=== PATIENT | female | born 1960 | race Two or more races ===

== ENCOUNTER 2020-05-23 14:32 | Emergency (ER) | payer OTHER ==
--- NOTE | 2020-05-23 14:45 | PDOC ---
Rapid Medical Evaluation Time Seen by Provider: 05/23/20 14:42 Medical Evaluation: 05/23/20 14:42 I have performed a brief in-person evaluation of this patient. CC: right rib pain s/p trip and fall PE: right 9th and 10th rib rib tenderness anteriorly. No SQ emphysema present. Lungs CTAB. Orders: rib series Patient will proceed to ED for further evaluation. 05/23/20 14:44 Discharge Disposition - Diagnosis Rib pain on right side - Referrals - Patient Instructions - Post Discharge Activity
[2020-05-23 14:46] VITALS: BP 141/83; PULSE 68; TEMP 97.3; BMI 29.8
[2020-05-23] MEDS ORDERED: ACETAMINOPHEN 500 MG TABLET (FP) PO ONE (14:46)
[2020-05-23] MEDS ORDERED: ACETAMINOPHEN 500 MG TABLET (FP) ONE (15:21)
--- NOTE | 2020-05-23 16:05 | PDOC ---
History of Present Illness - General Chief Complaint: Injury Stated Complaint: FALL Time Seen by Provider: 05/23/20 14:42 History Source: Patient Exam Limitations: No Limitations - History of Present Illness Initial Comments: 05/23/20 16:00 60-year-old female history of hypertension, diabetes presents complaining of right anterior chest wall pain status post mechanical trip and fall yesterday. Patient states she was walking outside, tripped over uneven pavement landing on her chest knees and bilateral arms. Denies head strike, LOC, neck pain, nausea, vomiting, headache, back pain, shortness of breath, abdominal pain or any other complaints. Patient received acetaminophen in triage. ROS: as above PE: GENERAL: well-appearing, NAD HEAD: NCAT EYES: Pupils equal, round and reactive to light, sclera anicteric, conjunctiva clear ENT: pharynx: no erythema, no exudate, uvula midline NECK: supple CHEST: Right anterior chest wall tenderness on palpation, no swelling, ecch ymoses or crepitus noted RESP: clear, no w/r/r CARDIO: rrr, no m/g/r ABD: +BS, soft, nontender, non distended BACK: no midline spinal ttp, no CVAT EXTREMITIES: Normal range of motion, no edema NEUROLOGICAL: Normal speech, normal gait SKIN: No abrasions or lacerations noted, warm, Dry Is this a multiple visit Asthma Patient?: No Past History - Medical History Allergies/Adverse Reactions: Allergies Allergy/AdvReac Type Severity Reaction Status Date / Time No Known Allergies Allergy Unverified 05/23/20 14:46 Home Medications: Ambulatory Orders Acetaminophen 500 mg PO QID PRN 5 Days #20 tablet 05/23/20 COPD: No HTN: Yes Hypercholesterolemia: Yes - Reproductive History Is Patient Now?: No - Psycho-Social/Smoking History Smoking History: Never smoked Have you smoked in the past 12 months: No Information on smoking cessation initiated: No - Substance Abuse Hx (Audit-C & DAST Scrn) How often the patient has a drink containing alcohol: Never Score: In Men: 4 or > Positive; In Women: 3 or > Positive: 0 Screen Result (Pos requires Nsg. Audit-10AR): Negative In the last yr the pt used illegal drug/Rx for NonMed reason: No Score: Yes response is considered Positive: 0 Screen Result (Positive result requires Nsg. DAST-10): Negative *Physical Exam - Vital Signs Last Vital Signs Temp Pulse Resp BP Pulse Ox 97.3 F L 68 16 141/83 100 05/23/20 14:43 05/23/20 14:43 05/23/20 14:43 05/23/20 14:43 05/23/20 14:43 ED Treatment Course - Medications Given in the ED: ED Medications Discontinued Medications Generic Name Dose Route Start Last Admin Trade Name Su PRN Reason Stop Dose Admin Acetaminophen 975 mg 05/23/20 14:46 05/23/20 15:22 Tylenol - PO 05/23/20 14:47 975 mg ONCE ONE Administration Medical Decision Making - Medical Decision Making 05/23/20 16:02 60-year-old female history of hypertension, diabetes presents complaining of right anterior chest wall pain status post mechanical trip and fall yesterday. Patient states she was walking outside, tripped over uneven pavement landing on her chest knees and bilateral arms. Denies head strike, LOC, neck pain, nausea, vomiting, headache, back pain, shortness of breath, abdominal pain or any other complaints. Patient received acetaminophen in triage. CXR: No acute findings on official read Return precautions discussed Discharge - Discharge Information Problems reviewed: Yes Clinical Impression/Diagnosis: Rib pain on right side Condition: Stable Disposition: HOME - Admission No - Follow up/Referral Referrals: ON STAFF,NOT [Primary Care Provider] - - Patient Discharge Instructions Additional Instructions: Alternate between acetaminophen and ibuprofen every 6 hours as needed for pain Follow-up with your doctor within a week Return to ED if shortness of breath, chest pain or any concerning symptom - Post Discharge Activity Work/Back to School Note: Back to Work
--- OUTSIDE RECORDS SUMMARY | 2020-05-23 19:39 | XMS ---
:1960 Author Organization [facility] Support Name Relationship Address Phone [facility] Unavailable [address] [place] [address] CARLOS ENRIQUE GRAVES DAUGHTER [address] [place] [address] CARLOS ENRIQUE GRAVES Child [address] [place] [address] Re-disclosure Warning The records that you are about to access may contain information from federally- assisted alcohol or drug abuse programs. If such information is present, then the following federally mandated warning applies: This information has been disclosed to you from records protected by federal confidentiality rules (42 CFR part 2). The federal rules prohibit you from making any further disclosure of this information unless further disclosure is expressly permitted by the written consent of the person to whom it pertains or as otherwise permitted by 42 CFR part 2. A general authorization for the release of medical or other information is NOT sufficient for this purpose. The Federal rules restrict any use of the information to criminally investigate or prosecute any alcohol or drug abuse patient.The records that you are about to access may contain highly sensitive health information, the redisclosure of which is protected by Article 27-F of the [facility] Public Health law. If you continue you may haveaccess to information: Regarding HIV / AIDS; Provided by facilities licensed or operated by the [facility] Office of Mental Health; or Provided by the [facility] Office for People With Developmental Disabilities. If such information is present, then the following [facility] mandated warning applies: This information has been disclosed to you from confidential records which are protected by state law. State law prohibits you from making any further disclosure of this information without the specific written consent of the person to whom it pertains, or as otherwise permitted by law. Any unauthorized further disclosure in violation of state law may result in a fine or residential sentence or both. A general authorization for the release of medical or other information is NOT sufficient authorization for further disclosure. Insurance Providers Payer name Policy type Policy ID Covered Covered alliance party's Policy P naida / Coverage alliance party ID relationship to [employer] type [employer] [id number] SP [id number] FIRST Results ID Date Data Source [id number] 11/25/2019 06:45:00 PM EDT [facility] Name Value Range Interpretation Code Description Data Lizz rce(s) Supporting Document(s ) OVER [facility] This lab was ordered by [facility] and reported by [facility]. Procedure
== END 2020-05-23 16:34 | disposition home or self-care (01) ==
LOC: JERFT 14:32
DX: R07.82 Intercostal pain (principal)
CPT/HCPCS: 71046-TC-FY; 71101-TC-RT-FY; 99284-25

== ENCOUNTER 2021-08-11 11:19 | Emergency (ER) | payer OTHER ==
[2021-08-11 11:38] VITALS: BMI 23.1
[2021-08-11 11:41] VITALS: BP 147/82; PULSE 67; TEMP 98.3
[2021-08-11] MEDS ORDERED: KETOROLAC TROMETHAMINE 30 MG/1 ML VIAL IM ONE (13:11)
[2021-08-11] MEDS ORDERED: METHOCARBAMOL 500 MG TABLET PO ONE (13:11)
[2021-08-11] MEDS ORDERED: LIDOCAINE 5% TOPICAL PATCH TP ONE (13:12)
[2021-08-11] MEDS ORDERED: KETOROLAC TROMETHAMINE 30 MG/1 ML VIAL ONE (13:17)
[2021-08-11] MEDS ORDERED: LIDOCAINE 5% TOPICAL PATCH ONE (13:17)
[2021-08-11] MEDS ORDERED: METHOCARBAMOL 500 MG TABLET ONE (13:17)
[2021-08-11] MEDS ORDERED: LIDOCAINE PATCH REMOVAL MC SCH (22:00)
== END 2021-08-11 13:40 | disposition home or self-care (01) ==
LOC: JER 11:19 → JERFT 11:19
PROC: 3E023GC Introduction of Other Therapeutic Substance into Muscle, Percutaneous Approach (ICD-10-PCS; principal; 2021-08-11)
DX: M25.511 Pain in right shoulder (principal)
CPT/HCPCS: 99284-25